=== PATIENT | female | born 1990 | race African-American/Black ===

== ENCOUNTER 2020-07-16 08:48 | Inpatient (IN) | payer OTHER ==
[~2020-07-16] VITALS: Ht 172.7 cm; Wt 97.1 kg
--- NOTE | ~2020-07-16 | PROC ---
[address] [address] PROCEDURE REPORT Name: MOLLY YOU Room: [address] IN M.R.#: [id number] Admission: 07/16/20 Attend Phys: Loraine Person Discharge: 07/21/20 Date of : 86 Report #: [id number] THIS REPORT FOR: //name// cc: Harry Mccarty APRN, William R APRN ~ For GI report, please see the Provation report in Perceptive 7 content. By: [id number] Records Staff [facility] /ALEKSANDRA
[2020-07-16 08:50] VITALS: BP 194/110
[2020-07-16 09:24] LABS: ABSOLUTE BASOPHILS 0.1 thou/uL (0.0-0.2); ABSOLUTE LYMPHOCYTES 1.3 thou/uL (0.8-5.3); ABSOLUTE MONOCYTES 0.4 thou/uL (0.0-1.2); ABSOLUTE NEUTROPHILS 7.5 thou/uL (1.6-8.1); BASOPHILS 0.9 %; EOSINOPHILS 0.2 %; HEMATOCRIT 35.9 % (37.0-47.0); HEMOGLOBIN 11.6 gm/dL (12.0-15.0); LYMPHOCYTES 13.7 %; MCHC 32.3 g/dL (28.0-37.0); MCV 71.1 fL (80.0-100.0); MONOCYTES 4.1 %; MPV 9.2 fl. (7.2-11.1); NUCLEATED RBCS 0 /100WBC; PLATELET COUNT* 252 thou/uL (150-400); POLYS 81.1 %; RBC 5.05 mil/uL (4.20-5.00); RDW-CV 15.5 % (10.5-14.5); WBC 9.2 thou/uL (4.0-11.0)
[2020-07-16 09:28] LABS: CREATININE 1.1 mg/dL (0.6-1.3); POTASSIUM 3.2 mmol/L (3.5-5.1)
[2020-07-16 09:32] LABS: ALBUMIN 4.1 g/dL (3.4-5.0); TOTAL BILIRUBIN 0.4 mg/dL (<0.1-1.0); TOTAL PROTEIN 8.3 g/dL (6.4-8.2)
--- NOTE | 2020-07-16 10:42 | NUR ---
PT TAKEN TO ER FROM CT AND [place] IS WITH PT IN RESTROOM
[2020-07-16 15:42] VITALS: BP 179/97
[2020-07-16 20:24] VITALS: BP 175/100
[2020-07-17 00:30] VITALS: BP 169/110
[2020-07-17 04:30] VITALS: BP 155/99
[2020-07-17 05:57] LABS: HEMATOCRIT 32.9 % (37.0-47.0); HEMOGLOBIN 10.8 gm/dL (12.0-15.0); MCH 23.1 pg (26.0-34.0); MCHC 32.7 g/dL (28.0-37.0); MCV 70.8 fL (80.0-100.0); MPV 8.5 fl. (7.2-11.1); RBC 4.65 mil/uL (4.20-5.00); RDW-CV 15.8 % (10.5-14.5); WBC 9.8 thou/uL (4.0-11.0)
[2020-07-17 06:18] LABS: ALBUMIN 3.3 g/dL (3.4-5.0); CALCIUM 7.8 mg/dL (8.5-10.1); CREATININE 1.1 mg/dL (0.6-1.3); POTASSIUM 3.2 mmol/L (3.5-5.1); TOTAL BILIRUBIN 0.7 mg/dL (<0.1-1.0); TOTAL PROTEIN 7.3 g/dL (6.4-8.2)
[2020-07-17 08:30] VITALS: BP 150/90
[2020-07-17 12:40] VITALS: BP 155/90
[2020-07-17 20:00] VITALS: BP 139/83
[2020-07-18] VITALS (8 sets, daily range): BP systolic 132–187; BP diastolic 84–115
[2020-07-18 04:28] LABS: ABSOLUTE LYMPHOCYTES 0.9 thou/uL (0.8-5.3); ABSOLUTE MONOCYTES 0.7 thou/uL (0.0-1.2); ABSOLUTE NEUTROPHILS 9.5 thou/uL (1.6-8.1); BASOPHILS 0.1 %; HEMATOCRIT 30.6 % (37.0-47.0); HEMOGLOBIN 9.7 gm/dL (12.0-15.0); MCH 22.8 pg (26.0-34.0); MCHC 31.9 g/dL (28.0-37.0); MCV 71.5 fL (80.0-100.0); MONOCYTES 6.7 %; MPV 9.2 fl. (7.2-11.1); NUCLEATED RBCS 0 /100WBC; PLATELET COUNT* 210 thou/uL (150-400); POLYS 85.2 %; RBC 4.27 mil/uL (4.20-5.00); RDW-CV 15.8 % (10.5-14.5); WBC 11.1 thou/uL (4.0-11.0)
[2020-07-18 05:04] LABS: ALBUMIN 3.1 g/dL (3.4-5.0); CALCIUM 8.3 mg/dL (8.5-10.1); CREATININE 1.1 mg/dL (0.6-1.3); MAGNESIUM 1.9 mg/dL (1.8-2.4); PHOSPHORUS* 3.8 mg/dL (2.5-4.9); POTASSIUM 3.7 mmol/L (3.5-5.1); TOTAL BILIRUBIN 2.2 mg/dL (<0.1-1.0)
--- NOTE | 2020-07-18 08:34 | NUR ---
PATIENT HAS RESTED WELL THROUGHOUT THE NIGHT. PAIN CONTROLLED WITH ORAL AND IV MEDICATIONS AND CHARTED. PATIENT UP WITH SBA TO THE BATHROOM AND URINATING ADEQUATELY. LAP SITES X 4 ARE WELL APPROXIMATED AND JUDY WITH DERMABOND. IV IN RIGHT AC-NS W/20K+ @ 125ML/HR. PATIENT BURPING BUT HAS NOT YET PASSED GAS. BOWEL SOUNDS ARE PRESENT. PATIENT INSTRUCTED TO USE CALL LIGHT WHEN NEEDING ASSISTANCE. HOURLY ROUNDS MADE. WILL CONTINUE WITH PLAN OF CARE AND NURSING TO MONITOR.
--- NOTE | 2020-07-18 10:50 | NUR ---
PT.HAD LAP JAKE THIS AM. PER NURSING MAY STAY AN ADDITIONAL DAY BILI AND LIVER FUNCTIONS ARE UP. PT.LIVES WITH HER AND CHILDRE. SHE WORKS OUTSIDE THE HOME. NO USE OF DME OR HX OF HH. NO DISCHARGE NEEDS IDENTIFIED.
--- NOTE | 2020-07-18 16:55 | NUR ---
PT REMAINED ALERT AND ORIENTED. PT C/O PAIN, MEDS GIVEN ORDERED. WORKING ON CONTROLLING PAIN AT THIS TIME. PT BP ELEVTAED MEDS GIVEN TO LOWER BP. FALL RISK PRECAUTIONS IN PLACE. HOURLY ROUNDING COMPLETED. WILL CONTINUE TO MONITOR.
[2020-07-19 05:06] VITALS: BP 148/95
--- NOTE | 2020-07-19 05:09 | NUR ---
PATIENT HAS REMAINED ALERT AND ORIENTED X 4 THROUGHOUT THE SHIFT AND RESTING QUIETLY ON HOURLY ROUNDS. UP SBA TO BR FOR VOIDS. STATES SHE HAS PASSED VERY LITTLE IF ANY GAS THIS SHIFT. DENIES NAUSEA. DERMABOND TO LAP SITES CLEAN, DRY AND INTACT. ABDOMEN APPEARS DISTENDED/ROUND. BOWEL SOUNDS PRESENT. MEDICATED FOR PAIN TO GOOD EFFECT Q4H. NPO FOR MRCP TODAY. VITAL SIGNS STABLE WITH TEMPERATURE 99.5. ROOM AIR. ASSISTED WITH DEEP BREATHING AND COUGH WITH ABDOMINAL SPLINTING WHEN AWAKE. CONTINUE TO MONITOR.
[2020-07-19 07:41] LABS: HEMOGLOBIN 9.9 gm/dL (12.0-15.0); MCH 23.1 pg (26.0-34.0); MCHC 31.9 g/dL (28.0-37.0); MCV 72.5 fL (80.0-100.0); RBC 4.28 mil/uL (4.20-5.00); RDW-CV 16.5 % (10.5-14.5); WBC 8.8 thou/uL (4.0-11.0)
[2020-07-19 07:52] LABS: CALCIUM 7.7 mg/dL (8.5-10.1); POTASSIUM 3.6 mmol/L (3.5-5.1); TOTAL BILIRUBIN 3.2 mg/dL (<0.1-1.0); TOTAL PROTEIN 6.6 g/dL (6.4-8.2)
[2020-07-19 08:03] VITALS: BP 168/107
--- NOTE | 2020-07-19 15:53 | NUR ---
PT DOWN FOR ERCP. REMAINED NPO AFTER MRCP EXCEPT FOR AM MEDICATION. IVF INFUSING. PRN PAIN MEDICATION GIVEN PER PT REQUESTS. UP AD MELISSA TO BATHROOM.
[2020-07-19 19:22] VITALS: BP 170/108
--- NOTE | 2020-07-19 21:26 | OP ---
[address] [address] OPERATIVE REPORT Name: MOLLY YOU Room: [address] IN M.Dejuan.#: [id number] Admission: 07/16/20 Attend Phys: Loraine Person Discharge: Date of : 86 Report #: [id number] THIS REPORT FOR: //name// cc: Harry Mccarty APRN, William R APRN ~ CC: Bita Mccarty DATE OF SERVICE: 07/17/2020 SURGEON: Hernan Tse DO PRINT LINE FEEDER: Levi Claire DO PREOPERATIVE DIAGNOSIS: Acute cholecystitis. POSTOPERATIVE DIAGNOSIS: Acute on chronic cholecystitis. PROCEDURE PERFORMED: Laparoscopic cholecystectomy. INDICATIONS: The patient is a 30-year-old female who presented to the Emergency Department with right upper quadrant pain. History of present illness, physical exam, and imaging were consistent with acute cholecystitis. Risks, benefits and alternatives to surgery were discussed in detail. Risks of bleeding, infection, damage to nearby structures including the bowel and biliary tree were discussed. The patient voiced understanding and elected to proceed with surgery. DESCRIPTION OF PROCEDURE: The patient was taken to the operating theater and placed in supine position. Bilateral SCDs were placed and preoperative antibiotics had been given. General anesthesia was induced without complication. The patient's abdomen was prepped and draped in the standard sterile fashion. A timeout was performed and all were in agreement. An infraumbilical transverse incision was made using an 11 blade scalpel. Dissection was carried down to the midline fascia using electrocautery and S retractors. Once the midline fascia was appreciated, it was scored with electrocautery and elevated into the surgical field using Rocky clamps. The abdomen was entered bluntly using a hemostat. 0 Vicryl stay sutures were placed on either edge of the fascia and the Alice trocar was introduced. The patient's abdomen was insufflated to 15 mmHg. Camera was introduced. There was no injury to intraabdominal contents upon abdominal entry. Next, the patient was placed in the head up, left side down position. A 5 mm subxiphoid port was then placed under direct visualization, two more right upper quadrant ports were 5 mm in size and placed under direct visualization. The gallbladder was white with a thick rind and there was pericholecystic fluid appreciated. There were also dense omental adhesions. The gallbladder fundus was grasped [place] [address] OPERATIVE REPORT Name: MOLLY YOU Room: [address]#: [id number] Admission: 07/16/20 Attend Phys: Loraine Person Discharge: Date of : 86 Report #: [id number] port and elevated. The omental adhesions were taken down carefully using blunt dissection and a small amount of electrocautery staying high on the gallbladder side. Once the omentum had been dissected from the gallbladder, Humza's pouch was appreciated. Humza's pouch was grasped and taken medially and superiorly. The lateral peritoneum of the gallbladder was incised using electrocautery. The peritoneal incision was carried out to the lateral side of the gallbladder. Next, the peritoneal incision was carried over Humza's pouch to the medial side of the gallbladder. Humza's pouch was then taken inferolaterally and the blunt dissection was used to sweep the peritoneal incision inferiorly, exposing the hepatocystic triangle. There was a significant amount of inflammation. Next, Humza's pouch was taken back medially and superiorly and a suction die setter device was used to sweep down the peritoneum on the lateral side exposing the posterior aspect of the cystic duct. Humza's pouch was again taken inferolaterally and further blunt dissection was carried out in the hepatocystic triangle, exposing the cystic duct and cystic artery. The cystic artery could be seen going directly into the gallbladder and this was near the cystic duct preventing complete skeletonization of the cystic duct, so the decision was made to skeletonize the cystic artery that was seen going directly into the gallbladder. Once this was done, 2 clips were placed on the proximal cystic artery and one on the distal side of the cystic artery and cystic artery was transected using EndoShears. Next, all fibrofatty tissue was cleared of the hepatocystic triangle and the liver could be seen through the hepatocystic triangle from the posterior and anterior side. This was a critical view of safety with one structure going into the gallbladder. This was a cystic duct. This was completely skeletonized. The cystic duct was rather large and Endoclips could not be placed on the cystic duct due to the cystic duct size. The subxiphoid port was then upsized to a 12 mm trocar and an Endo-CALLI stapler was introduced. The white loaded Endo-CALLI stapler was used to come across the distal cystic duct. This was done successfully. The stapler was removed. Next, the gallbladder was elevated towards the anterior abdominal wall and dissected free from the gallbladder fossa using electrocautery, again high on the gallbladder. No posterior arteries were encountered. Next, the gallbladder was continually dissected from the gallbladder fossa. The gallbladder was densely adhered and intrahepatic and a partial liver capsule was removed with the gallbladder. Once the gallbladder was completely removed, it was placed into an EndoCatch bag and placed to the side. The liver was elevated again. The right upper quadrant was irrigated and suctioned. Hemostasis was obtained using electrocautery on the the gallbladder fossa. Due to ooziness, a piece of Surgicel was placed in the gallbladder fossa and Surgiflo over top of this. The right upper quadrant was suctioned again and was hemostatic. The staple line was visualized and intact without bile leakage. The liver was then placed in its normal anatomical position and the right upper quadrant above the liver was suctioned dry. Next, the patient was placed back in the neutral position. The 5 mm trocars were removed under direct visualization. The subxiphoid port was removed and a PMI closure device was used to close the 12 [place] [address] OPERATIVE REPORT Name: MOLLY YOU Room: [address]#: [id number] Admission: 07/16/20 Attend Phys: Loraine Person Discharge: Date of : 86 Report #: [id number] the subxiphoid position using an 0 Vicryl. Next, the Alice trocar was removed in the midline. The gallbladder could not be removed to our midline incision secondary to the large burden of gallstones. The fascial incision was slightly opened using a curved Gutierrez scissors. The gallbladder still could not be removed from the midline incision, so the EndoCatch bag was opened. The gallbladder was opened with Metzenbaum scissors and a stone scoop was used to crush the gallstones within the gallbladder. This made the gallbladder and contents able to be removed from the abdomen within the EndoCatch bag. Next, the midline fascia was closed using 0 Vicryl in a [id number] fashion. Next, the subcutaneous tissue was closed using a 3-0 Vicryl in an interrupted inverted fashion. All skin incisions were closed using a 4-0 Monocryl in an interrupted inverted fashion. All skin wounds were dressed with Dermabond. This concluded the procedure. All sponge, needle and instrument counts were correct x 2. COMPLICATIONS: None. FINDINGS: Significantly edematous gallbladder with chronic wall thickening, large stone burden, dilated cystic duct. ESTIMATED BLOOD LOSS: 40 mL. ANESTHESIA: General endotracheal anesthesia. DRAINS: None. SPECIMENS: Gallbladder and contents. DISPOSITION: The patient was extubated successfully in the operating theater and taken to the PACU in stable condition. <ELECTRONICALLY SIGNED> By: Hernan Tse DO 07/19/20 2126 [id number] Tse DO /nt
[2020-07-20 04:24] LABS: HEMATOCRIT 31.6 % (37.0-47.0); HEMOGLOBIN 10.2 gm/dL (12.0-15.0); MCH 22.9 pg (26.0-34.0); MCHC 32.1 g/dL (28.0-37.0); MCV 71.4 fL (80.0-100.0); MPV 9.3 fl. (7.2-11.1); RBC 4.43 mil/uL (4.20-5.00); RDW-CV 16.3 % (10.5-14.5); WBC 12.2 thou/uL (4.0-11.0)
[2020-07-20 04:32] VITALS: BP 179/116
[2020-07-20 04:52] LABS: ALBUMIN 2.9 g/dL (3.4-5.0); CALCIUM 8.6 mg/dL (8.5-10.1); POTASSIUM 4.1 mmol/L (3.5-5.1); TOTAL BILIRUBIN 3.2 mg/dL (<0.1-1.0); TOTAL PROTEIN 6.7 g/dL (6.4-8.2)
[2020-07-20 05:03] VITALS: BP 148/81
--- NOTE | 2020-07-20 06:24 | NUR ---
PT VOMITED THIS AM. SHE IS HAVING SOME PAIN AND HESITANT TO TAKE ANY PO MEDS ALERT AND ORIENTED, UP STANDBY TO RESTROOM. SHE DID HAVE ELEVATED BP GIVEN HYDRALAZINE 178/116 TO 148/81 THIS MORNING. SHE IS RESTING COMFORTABLY AT THIS TIME.
[2020-07-20 08:00] VITALS: BP 156/95
[2020-07-20 16:00] VITALS: BP 154/92
--- NOTE | 2020-07-20 16:24 | NUR ---
PATIENT ALERT AND ORIENTED X 4. VITAL SIGNS STABLE ON ROOM AIR. AFEBRILE. UP WITH ASSISTANCE TO THE BATHROOM AND AMBULATING IN HALLWAY. IV PATENT WITH FLUIDS INFUSING PER MAR. NAUSEA BEING MANAGED WITH PO MEDICATION. DENIES PAIN AT THIS TIME. LAP SITES TO ABDOMENT CLEAN, DRY, INTACT. HOURLY ROUNDS MAINTAINED THROUGHOUT THE SHIFT. CALL LIGHT WITHIN REACH. NURSING WILL CONTINUE TO MONITOR.
[2020-07-20 20:03] VITALS: BP 166/108
[2020-07-20 22:00] VITALS: BP 154/90
[2020-07-21 04:10] LABS: HEMATOCRIT 26.9 % (37.0-47.0); HEMOGLOBIN 8.7 gm/dL (12.0-15.0); MCH 23.2 pg (26.0-34.0); MCHC 32.3 g/dL (28.0-37.0); MCV 71.8 fL (80.0-100.0); MPV 8.7 fl. (7.2-11.1); RBC 3.75 mil/uL (4.20-5.00); RDW-CV 16.7 % (10.5-14.5); WBC 10.1 thou/uL (4.0-11.0)
[2020-07-21 04:25] LABS: ALBUMIN 2.7 g/dL (3.4-5.0); CALCIUM 7.8 mg/dL (8.5-10.1); CREATININE 0.9 mg/dL (0.6-1.3); POTASSIUM 3.7 mmol/L (3.5-5.1); TOTAL BILIRUBIN 0.9 mg/dL (<0.1-1.0); TOTAL PROTEIN 6.2 g/dL (6.4-8.2)
--- NOTE | 2020-07-21 06:01 | NUR ---
PATIENT SLEPT PART OF THE NIGHT. IV FLUIDS AND ANTIBIOTICS WERE GIVEN ORDERED. PATIENT WAS HAVING INCREASED PAIN AND NAUSEA. MORPHINE WAS GIVEN TWICE AND ZOFRAN ONCE THIS SHIFT. WILL CONTINUE TO MONITOR.
[2020-07-21 08:15] VITALS: BP 156/99
[2020-07-21] MEDS ORDERED: ZOFRAN4 MG PO (11:39)
[2020-07-21] MEDS ORDERED: NORCO 5-325 TA1 EAC2 PO (11:39)
[2020-07-21] MEDS ORDERED: CEFDINIR300 MG PO (11:39)
[2020-07-21 12:07] VITALS: BP 156/99
--- NOTE | 2020-07-21 13:55 | NUR ---
PATIENT DISCHARGED FROM UNIT AT 1350. ALERT AND ORIENTED X 4. VITAL SIGNS STABLE ON ROOM AIR. AMBULATING IN ROOM AND IN HALLWAY. IV DISCONTINUED. DENIES NAUSEA AT THIS TIME. PAIN BEING MANAGED WITH PO MEDICATION. DISCHARGE INSTRUCTIONS, MEDICATION INFORMATION, AND SCRIPTS GIVEN TO PATIENT. LEFT WITH ALL BELONGINGS. PATIENT LEFT WITH SIGNIFICANT OTHER VIA CAR.
[2020-07-21 14:00] VITALS: BP 156/99
--- NOTE | 2020-07-22 15:07 | PATH ---
[address] [address] PATHOLOGY RPT PROCEDURE Name: ROBERTA MORTENSEN Room: [address] IN .R.#: [id number] Admission: 07/16/20 Date of : 86 Discharge: 07/21/20 Report #: [id number] Path Case #: [id number] [facility] Accession Number: [id number] . 01 Material submitted: . gallbladder - GALLBLADDER . 01 Clinical history: . CHOLECYSTITIS/CHOLELITHIASIS . 02 Diagnosis: Gallbladder: - Chronic cholecystitis, cholelithiasis, mural fibrosis and scant attached benign liver tissue. (ODETTE/db; 07/22/2020) LBQ 07/22/2020 1130 Local . 02 Electronically signed: . Andres Gary MD, Pathologist NPI- [id number] . 01 Gross description: . The specimen is received in formalin, labeled "Roberta Mortensen gallbladder". Received is a previously opened gallbladder measuring 6.5 x 3.2 x 2.3 cm in greatest dimensions displaying a light milan serosal surface. Opening the specimen reveals a velvety, light milan mucosa with a gallbladder wall thickness of 0.1 cm. A single yellow-milan, nodular calculus is present, and no masses or lesions are noted grossly. Clinical Services Director sections, to include the proximal margin, are submitted in cassette A1. (CAA; 07/19/2020) QA/QA 07/19/2020 1510 Local . 02 Pathologist provided ICD-10: K80.10 . 02 CPT . 123445 Specimen Comment: A courtesy copy of this report has been sent to [phone] Specimen Comment: [phone], Specimen Comment: Report sent to ,DR SCHULZ / DR SALAZAR Performed at: [address] [id number] MD Frandy Courtney MD Phone: [phone] Performed at: 02 [place] [address] PATHOLOGY RPT PROCEDURE Name: ROBERTA MORTENSEN Room: [address] IN M.R.#: [id number] Admission: 07/16/20 Date of : 86 Discharge: 07/21/20 Report #: [id number] Path Case #: [id number] [address], [place] [id number] MD Andres Gary MD Phone: [phone]
--- NOTE | 2020-07-23 11:09 | CON ---
[address] [address] CONSULTATION Name: MOLLY YOU Room: [address] IN M.R.#: [id number] Admission: 07/16/20 Attend Phys: Loraine Person Discharge: 07/21/20 Date of : 86 Report #: [id number] THIS REPORT FOR: //name// cc: Harry Mccarty APRN, William R APRN ~ DATE OF SERVICE: 07/19/2020 REFERRING PHYSICIAN: Dr. Hernan Tse. REASON FOR CONSULTATION: Persistent abdominal pain post-laparoscopic cholecystectomy. IMPRESSION: 1. Right upper quadrant pain with rising elevated LFTs -- evaluate for choledocholithiasis versus sphincter of Oddi dysfunction versus other causes. 2. Iron deficiency anemia, likely related to heavy periods with large uterine fibroids noted on pelvic ultrasound. 3. Status post laparoscopic cholecystectomy for calculus cholecystitis. RECOMMENDATIONS: I have seen and examined the patient and agree that the patient should undergo an upper endoscopy to evaluate for any source of chronic gastrointestinal blood loss, but also an ERCP with probable sphincterotomy plus or minus stone extraction and/or biliary stent placement. I have discussed these plans with the patient as well as her significant other and they are agreeable to proceed. We will proceed with EGD, ERCP today and make further recommendations thereafter. HISTORY OF PRESENT ILLNESS: This is a 30-year-old -[place] female who presented to the Emergency Room on the with complaints of rather severe upper abdominal pain, which has been ongoing for a couple of days prior to admission. She started having problems with nausea, vomiting as well. She denied having anything like this, no problems like this in the past. She denies any complaints of any dysphagia, odynophagia, postprandial pain or problems normally with her bowels or bowel frequency. She denies any black stools, tarry stools or any blood in stools. She does take intermittent Aleve or Advil, but nothing on a regular basis. She has no prior history of GI bleeding in the past, but does have very heavy periods. She has had problem with chronic anemia. She presented to the Emergency Room and was found to have acute cholecystitis and underwent laparoscopic cholecystectomy on the and has done well, has had some problems with persistent pain. In addition, her liver function test has completed, has continued to rise with her bilirubin now being up until 3.2. She underwent an MRCP, which revealed dilated biliary tree and there was suggestion that there may be a small stone in the distal duct. She has had persistent pain and does not want to eat. ALLERGIES: [place] [address] CONSULTATION Name: MOLLY YOU Room: [address] IN M.R.#: [id number] Admission: 07/16/20 Attend Phys: Loraine Person Discharge: 07/21/20 Date of : 86 Report #: [id number] MEDICATIONS AT HOME: None. PAST MEDICAL HISTORY: Remarkable for PCOS, fibroids and history of migraines. SOCIAL HISTORY: She does not smoke or drink. FAMILY HISTORY: Remarkable for gallbladder disease in her mother. PHYSICAL EXAMINATION: GENERAL: Pleasant 28-year-old -[place] female who is awake and alert. CARDIOPULMONARY: Revealed a regular rate and rhythm. LUNGS: Clear. ABDOMEN: Soft and she is tender in the right upper quadrant. LABORATORY TESTS: From the revealed a white count of 8.8, hemoglobin 9.9, platelet count 201,000, MCV is 72.5 and RDW of 16.5. Her sodium 139, potassium 3.6, chloride 106, bicarbonate 26, her BUN is 9, creatinine 1.0, GFR of 78. Total bilirubin 3.2, alkaline phosphatase 149, AST is 139, ALT 209. On admission, her bilirubin was 0.4, alkaline phosphatase was 91. Her AST was 13 and ALT was 17. Her bilirubin has continued to rise over the last 3 days and is up to 3.2. CT scan of the abdomen and pelvis was reviewed from the and revealed some very large uterine fibroid encompassing the anterior aspect of the uterine fundus measuring up to 10 cm in size. There are also findings compatible with acute cholecystitis without dilated biliary tree. Abdominal ultrasound performed on the revealed evidence for gallbladder wall, large gallstone and smaller stones as well as gallbladder wall thickening and trace amount of pericholecystic fluid. Her common bile duct was not dilated at that time. Her spleen was borderline enlarged measuring at 12 cm. MRCP performed on the revealed common bile duct measuring about 6 mm with some motion artifact. There may be a 3 mm filling defect in distal duct. DISCUSSION: At the present time, the patient has had worsening abdominal pain postprandially. We will proceed with EGD and ERCP today and make further recommendations thereafter. I have discussed the plans as well as the nature, risks, benefits and alternatives of the procedure as well with her and her significant other and they are agreeable to the same. <ELECTRONICALLY SIGNED> By: Rehan Price DO 07/23/20 1109 1626 Nahum Price DO /nt
== END 2020-07-21 13:50 | disposition home or self-care (01) | DRG 418 ==
LOC: M.ERS 08:48 → M.TBA-ER 12:20 → M.3W 07-17 20:02
PROVIDERS: Family Medicine; Surgery; ADMIT Internal Medicine; ATTEND Internal Medicine
PROC: 0FT44ZZ Resection of Gallbladder, Percutaneous Endoscopic Approach (ICD-10-PCS; 2020-07-17)
PROC: BF101ZZ Fluoroscopy of Bile Ducts using Low Osmolar Contrast (ICD-10-PCS; principal; 2020-07-19)
PROC: 0FC98ZZ Extirpation of Matter from Common Bile Duct, Via Natural or Artificial Opening Endoscopic (ICD-10-PCS; principal; 2020-07-19)
PROC: 0DJ08ZZ Inspection of Upper Intestinal Tract, Via Natural or Artificial Opening Endoscopic (ICD-10-PCS; principal; 2020-07-19)
DX: K80.62 Calculus of gallbladder and bile duct with acute cholecystitis without obstruction (principal); R65.10 Systemic inflammatory response syndrome (SIRS) of non-infectious origin without acute organ dysfunction; G43.909 Migraine, unspecified, not intractable, without status migrainosus; I10 Essential (primary) hypertension; E87.6 Hypokalemia; K44.9 Diaphragmatic hernia without obstruction or gangrene; D50.9 Iron deficiency anemia, unspecified; Z20.828 Contact with and (suspected) exposure to other viral communicable diseases; Z91.018 Allergy to other foods